=== PATIENT | male | born 1975 | race African-American/Black ===

== ENCOUNTER 2021-08-25 15:27 | Emergency (ER) | payer OTHER, MEDICAID ==
[~2021-08-25] VITALS: Ht 182.9 cm; Wt 78.0 kg
[2021-08-25 15:30] VITALS: BP 128/83
[2021-08-25] MEDS ORDERED: LEVETIRACETAM 500MG PREMIX 100 ML IV ONE (16:15)
[2021-08-25] MEDS ORDERED: LEVETIRACETAM 500MG TABLET PO ONE (17:45)
== END 2021-08-25 17:55 | disposition home or self-care (01) ==
LOC: ER 15:27
DX: G40.909 Epilepsy, unspecified, not intractable, without status epilepticus (principal)
CPT/HCPCS: 99283